=== PATIENT | female | born 1935 | race Two or more races ===

== ENCOUNTER 2023-08-26 18:25 | Inpatient (IN) | payer MEDICAID, OTHER ==
[~2023-08-26] VITALS: Ht 142.2 cm; Wt 44.0 kg
[2023-08-26 19:39] LABS: Basophils # (auto) 0.1 10 ^3/uL (0-0.2); Basophils % (auto) 0.8 % (0.0-2.0); Eosinophils # (auto) 0 10 ^3/uL (0-0.8); Eosinophils % (auto) 0.4 % (0.0-7.0); Hematocrit 40.1 % (36.0-46.0); Hemoglobin 13.2 g/dL (12.2-16.2); Lymphocytes # (auto) 2.6 10 ^3/uL (0.4-5.4); Lymphocytes % (auto) 36.4 % (10.0-50.0); Mean Corpuscular Hemoglobin 30.9 pg (28.0-32.0); Mean Corpuscular Volume 93.6 fL (80.0-100.0); Monocytes # (auto) 0.3 10 ^3/uL (0-1.3); Neutrophils # (auto) 4.1 10 ^3/uL (1.6-8.6); Neutrophils % (auto) 58.4 % (37.0-80.0); Nucleated Red Blood Cells % 0.2 %; Red Blood Cells 4.29 10^6/uL (4.0-5.20)
[2023-08-26 19:45] LABS: INR 1.01 (0.9-1.15); Partial Thromboplastin Time 26.8 SEC (24.5-34.5); Prothrombin Time 10.6 sec (9.3-11.8)
[2023-08-26 19:48] LABS: Alanine Aminotransferase 22 U/L (7-40); Albumin 4.5 g/dL (3.2-4.8); Alkaline Phosphatase 78 U/L (46-116); Anion Gap 17 (5-15); Aspartate Aminotransferase 31 U/L (13-40); BUN/Creatinine Ratio 22.9 (10.0-20.0); Bilirubin, Total 0.6 mg/dL (0.2-1.0); Blood Urea Nitrogen 27 mg/dL (9-23); Calcium 9.3 mg/dL (8.5-10.1); Carbon Dioxide 20 mmol/L (20-30); Chloride 105 mmol/L (98-107); Glucose 102 mg/dL (74-106); Potassium 4.3 mmol/L (3.5-5.1); Sodium 142 mmol/L (136-145); Total Protein 8.1 g/dL (5.7-8.2)
[2023-08-26 20:02] LABS: CRP High Sensitivity 0.09 mg/dL (<1.0)
[2023-08-26 21:36] LABS: Urine Bacteria NONE SEEN /hpf (None Seen); Urine Blood Negative /uL (Negative); Urine Clarity HAZY (Clear); Urine Color Yellow (Yellow); Urine Hyaline Cast MOD /lpf (0 - 2); Urine Mucus FEW (None Seen); Urine Protein, UAD 1+ (Negative); Urine Specific Gravity 1.022 (1.001-1.035); Urine Urobilinogen Normal (Negative); Urine WBC 23 /hpf (0 - 5); Urine pH 5.5 (5.0-8.0)
[2023-08-26 23:45] VITALS: O2SAT 96
[2023-08-27] MEDS ORDERED: SULFAMETHOX W/TRIMETH(800/160MG) DS TAB PO ONE (00:30)
[2023-08-27] MEDS ORDERED: CEFTRIAXONE SODIUM 2 GM in D5W 5% 100 ML IV ONE (00:30)
[2023-08-27] MEDS ORDERED: cefTRIAXone 1GM/50ML D5W 50 ML IV ONE ×2 (01:15)
[2023-08-27] MEDS ORDERED: dilTIAZem 25 MG/5 ML VIAL IV ONE (02:30)
[2023-08-27] MEDS ORDERED: SODIUM CHLORIDE 0.9% 500 ML IV ONE (02:30)
[2023-08-27] MEDS ORDERED: ONDANSETRON HCL 4 MG/2 ML VIAL IV PRN (03:15)
[2023-08-27] MEDS ORDERED: ACETAMINOPHEN 325 MG TAB PO PRN (03:15)
[2023-08-27] MEDS ORDERED: NITROGLYCERIN 0.4 MG SL TAB SL PRN (03:15)
[2023-08-27] MEDS ORDERED: DOCUSATE SOD 100 MG CAP PO PRN (03:15)
[2023-08-27] MEDS ORDERED: MORPHINE SULFATE INJ 2 MG/ml SYRG IV PRN (03:15)
[2023-08-27] MEDS ORDERED: HYDROcodone-ACET 5/325MG TAB PO PRN (03:15)
[2023-08-27] MEDS: SODIUM CHLOR 0.9% PF (SALINE LOCK) 10ML VIAL/SYR IV SCH ×3 (06:10→21:57)
[2023-08-27 07:17] LABS: Basophils # (auto) 0.1 10 ^3/uL (0-0.2); Basophils % (auto) 0.9 % (0.0-2.0); Eosinophils # (auto) 0.1 10 ^3/uL (0-0.8); Eosinophils % (auto) 1.5 % (0.0-7.0); Hematocrit 30.3 % (36.0-46.0); Hemoglobin 10.2 g/dL (12.2-16.2); Lymphocytes # (auto) 1.9 10 ^3/uL (0.4-5.4); Lymphocytes % (auto) 32.8 % (10.0-50.0); Mean Corpuscular Hemoglobin 30.7 pg (28.0-32.0); Mean Corpuscular Hgb Conc. 33.5 g/dL (32.0-36.0); Mean Corpuscular Volume 91.8 fL (80.0-100.0); Monocytes # (auto) 0.5 10 ^3/uL (0-1.3); Neutrophils # (auto) 3.3 10 ^3/uL (1.6-8.6); Neutrophils % (auto) 56.8 % (37.0-80.0); Nucleated Red Blood Cells % 0.1 %; Red Cell Distribution Width 14.5 % (11.8-14.3); White Blood Cell 5.9 10^3/uL (4.4-10.8)
[2023-08-27 07:52] LABS: Alanine Aminotransferase 14 U/L (7-40); Albumin 3.6 g/dL (3.2-4.8); Alkaline Phosphatase 56 U/L (46-116); Anion Gap 12 (5-15); Aspartate Aminotransferase 20 U/L (13-40); BUN/Creatinine Ratio 21.3 (10.0-20.0); Bilirubin, Total 0.3 mg/dL (0.2-1.0); Blood Urea Nitrogen 19 mg/dL (9-23); Calcium 8.1 mg/dL (8.5-10.1); Carbon Dioxide 21 mmol/L (20-30); Chloride 112 mmol/L (98-107); Glucose 76 mg/dL (74-106); Potassium 3.6 mmol/L (3.5-5.1); Sodium 145 mmol/L (136-145); Total Protein 6.5 g/dL (5.7-8.2)
[2023-08-27] MEDS ORDERED: dilTIAZem 120MG ER CAP PO SCH (10:00)
[2023-08-27] MEDS ORDERED: MIDAZOLAM DRIP 50 mg/50mL 0 ML IV ONE (10:08)
[2023-08-27] MEDS: ASPirin 81 mg TAB PO SCH (11:09)
[2023-08-27] MEDS ORDERED: methIMAzole 5 MG TAB PO ONE (11:45)
[2023-08-27 20:00] VITALS: PULSE 62; RESP 22; O2SAT 99
[2023-08-27] MEDS: METOPROLOL TARTRATE 25 MG TAB PO SCH (21:57)
[2023-08-27] MEDS: cefTRIAXone 1GM/50ML D5W 50 ML IV SCH (21:57)
[2023-08-28] VITALS (9 sets, daily range): BP systolic 123–148; BP diastolic 39–47; PULSE 52–78; RESP 15–20; TEMP 97.5–99.1; O2SAT 90–95
[2023-08-28] MEDS ORDERED: METH5TAB98 PO (02:54)
[2023-08-28] MEDS ORDERED: AMLO1TAB23 PO (02:54)
[2023-08-28] MEDS ORDERED: ASPI-325 PO (02:54)
[2023-08-28] MEDS ORDERED: DONE6TAB PO (02:54)
[2023-08-28] MEDS ORDERED: ROSU1TAB14 PO (02:54)
[2023-08-28] MEDS ORDERED: CHOL20002 PO (02:54)
[2023-08-28] MEDS ORDERED: MET25T PO (02:54)
[2023-08-28 04:44] LABS: Basophils # (auto) 0.1 10 ^3/uL (0-0.2); Basophils % (auto) 0.8 % (0.0-2.0); Eosinophils # (auto) 0.1 10 ^3/uL (0-0.8); Eosinophils % (auto) 1.7 % (0.0-7.0); Hematocrit 33.7 % (36.0-46.0); Lymphocytes # (auto) 2.2 10 ^3/uL (0.4-5.4); Lymphocytes % (auto) 29.4 % (10.0-50.0); Mean Corpuscular Hemoglobin 30.9 pg (28.0-32.0); Mean Corpuscular Hgb Conc. 32.7 g/dL (32.0-36.0); Mean Corpuscular Volume 94.5 fL (80.0-100.0); Monocytes # (auto) 0.3 10 ^3/uL (0-1.3); Monocytes % (auto) 4.2 % (0.0-12.0); Neutrophils # (auto) 4.7 10 ^3/uL (1.6-8.6); Neutrophils % (auto) 63.9 % (37.0-80.0); Nucleated Red Blood Cells % 0.1 %; Red Blood Cells 3.56 10^6/uL (4.0-5.20); Red Cell Distribution Width 15.1 % (11.8-14.3); White Blood Cell 7.3 10^3/uL (4.4-10.8)
[2023-08-28 05:01] LABS: Albumin 3.9 g/dL (3.2-4.8); Alkaline Phosphatase 62 U/L (46-116); Anion Gap 13 (5-15); Aspartate Aminotransferase 25 U/L (13-40); BUN/Creatinine Ratio 17.6 (10.0-20.0); Blood Urea Nitrogen 18 mg/dL (9-23); Calcium 8.5 mg/dL (8.7-10.4); Carbon Dioxide 19 mmol/L (20-30); Chloride 113 mmol/L (98-107); Glucose 63 mg/dL (74-106); Potassium 4.2 mmol/L (3.5-5.1); Sodium 145 mmol/L (136-145)
[2023-08-28 05:02] LABS: Bilirubin, Total 0.5 mg/dL (0.2-1.0); Total Protein 7.3 g/dL (5.7-8.2)
[2023-08-28 05:22] LABS: Alanine Aminotransferase 16 U/L (7-40)
[2023-08-28] MEDS: SODIUM CHLOR 0.9% PF (SALINE LOCK) 10ML VIAL/SYR IV SCH ×3 (06:14→21:20)
[2023-08-28] MEDS: methIMAzole 5 MG TAB PO SCH (08:44)
[2023-08-28] MEDS: ASPirin 81 mg TAB PO SCH (08:50)
[2023-08-28] MEDS: METOPROLOL TARTRATE 25 MG TAB PO SCH ×2 (08:50→21:20)
[2023-08-28] MEDS ORDERED: CHOL20007 PO (08:54)
[2023-08-28] MEDS ORDERED: MELA5TAB10 PO (08:55)
[2023-08-28 16:25] LABS: Free T4 (Free Thyroxine) 1.09 ng/dL (0.89-1.76); T3 Total 0.92 ng/mL (0.60-1.81)
[2023-08-28] MEDS: MEGESTROL ACET 400MG/10ML ORAL SUSP GT SCH (21:20)
[2023-08-28] MEDS: cefTRIAXone 1GM/50ML D5W 50 ML IV SCH (21:20)
[2023-08-29] MEDS ORDERED: MELATONIN 5 MG TAB PO ONE ×2 (00:15→22:00)
[2023-08-29] MEDS ORDERED: MELATONIN 5 MG TAB ONE (00:21)
[2023-08-29] MEDS: SODIUM CHLOR 0.9% PF (SALINE LOCK) 10ML VIAL/SYR IV SCH ×2 (04:53→13:11)
[2023-08-29 05:00] VITALS: BP 132/44; PULSE 59; RESP 18; TEMP 98; O2SAT 92
[2023-08-29 08:00] VITALS: PULSE 76; O2SAT 95
[2023-08-29 08:10] VITALS: BP 141/56; PULSE 61; RESP 18; TEMP 98.2; O2SAT 96
[2023-08-29 08:59] LABS: Basophils # (auto) 0 10 ^3/uL (0-0.2); Basophils % (auto) 0.7 % (0.0-2.0); Eosinophils # (auto) 0.1 10 ^3/uL (0-0.8); Eosinophils % (auto) 2.2 % (0.0-7.0); Hematocrit 34.7 % (36.0-46.0); Hemoglobin 11.4 g/dL (12.2-16.2); Lymphocytes # (auto) 1.9 10 ^3/uL (0.4-5.4); Lymphocytes % (auto) 28.4 % (10.0-50.0); Mean Corpuscular Hemoglobin 31.4 pg (28.0-32.0); Mean Corpuscular Volume 95.3 fL (80.0-100.0); Monocytes # (auto) 0.5 10 ^3/uL (0-1.3); Neutrophils # (auto) 4.1 10 ^3/uL (1.6-8.6); Neutrophils % (auto) 61.7 % (37.0-80.0); Nucleated Red Blood Cells % 0.1 %; Red Blood Cells 3.64 10^6/uL (4.0-5.20); Red Cell Distribution Width 15.5 % (11.8-14.3); White Blood Cell 6.6 10^3/uL (4.4-10.8)
[2023-08-29 09:12] LABS: Chloride 110 mmol/L (98-107); Potassium 3.6 mmol/L (3.5-5.1); Sodium 141 mmol/L (136-145)
[2023-08-29 09:13] LABS: Anion Gap 9 (5-15); Calcium 8.7 mg/dL (8.5-10.1); Carbon Dioxide 22 mmol/L (20-30)
[2023-08-29 09:18] LABS: BUN/Creatinine Ratio 9.9 (10.0-20.0); Glucose 142 mg/dL (74-106)
[2023-08-29] MEDS: ASPirin 81 mg TAB PO SCH (09:18)
[2023-08-29] MEDS: methIMAzole 5 MG TAB PO SCH (09:18)
[2023-08-29] MEDS: METOPROLOL TARTRATE 25 MG TAB PO SCH (09:18)
[2023-08-29 09:20] LABS: Blood Urea Nitrogen 8 mg/dL (9-23)
[2023-08-29] MEDS ORDERED: MIRT1TAB PO (10:27)
[2023-08-29] MEDS ORDERED: CEPH500C PO (10:29)
[2023-08-29] MEDS: MEGESTROL ACET 400MG/10ML ORAL SUSP GT SCH (10:29)
[2023-08-29] MEDS ORDERED: FER325T PO (11:11)
[2023-08-29] MEDS ORDERED: ASCO500T11 PO (11:12)
[2023-08-29 11:23] LABS: % Iron Saturation 21.7 % (15-50)
[2023-08-29 12:10] VITALS: BP 137/56; PULSE 59; RESP 17; TEMP 98.4; O2SAT 95
[2023-08-29 16:00] VITALS: BP 147/59; PULSE 62; RESP 18; TEMP 98.3; O2SAT 97
[2023-08-29 16:03] VITALS: BP 113/66; PULSE 82; RESP 20; TEMP 98.1; O2SAT 97
[2023-08-29] MEDS ORDERED: FERROUS SULFATE 325mg EC TAB PO SCH (18:00)
== END 2023-08-29 16:55 | disposition home health service (06) | DRG 421 ==
LOC: ER 18:25 → TELE 08-27 03:02 → TELE-WESTW 08-27 23:57
PROVIDERS: ADMIT Internal Medicine; ATTEND Internal Medicine
DX: R62.7 Adult failure to thrive (principal); N17.0 Acute kidney failure with tubular necrosis; I67.1 Cerebral aneurysm, nonruptured; R65.10 Systemic inflammatory response syndrome (SIRS) of non-infectious origin without acute organ dysfunction; I24.9 Acute ischemic heart disease, unspecified; I11.0 Hypertensive heart disease with heart failure; D63.8 Anemia in other chronic diseases classified elsewhere; I50.32 Chronic diastolic (congestive) heart failure; N39.0 Urinary tract infection, site not specified; I48.91 Unspecified atrial fibrillation; E11.9 Type 2 diabetes mellitus without complications; E05.90 Thyrotoxicosis, unspecified without thyrotoxic crisis or storm; E78.5 Hyperlipidemia, unspecified; F03.93 Unspecified dementia, unspecified severity, with mood disturbance; F32.A Depression, unspecified; Z63.4 Disappearance and death of family member; Z79.84 Long term (current) use of oral hypoglycemic drugs; Z86.73 Personal history of transient ischemic attack (TIA), and cerebral infarction without residual deficits
CPT/HCPCS: 36415; 70450; 71250; 74176; 80048; 80053; 81001; 82270; 83540; 83550; 83605; 83690; 83880; 84439; 84443; 84480; 84484; 85025; 85610; 85730; 86141; 87086; 93005; 93306; 96361; 96365; 97163; G0378; J0696; J2250; J7060

== ENCOUNTER 2024-06-27 13:35 | Inpatient (IN) | payer MEDICAID ==
[~2024-06-27] VITALS: Ht 142.2 cm; Wt 40.2 kg
[~2024-06-27 13:35] MED LIST: ACE3T PO; AMLO1TAB23 PO; CHOL20002 PO; DIVA250T12 PO; DONE6TAB PO; FER325T PO; MELA5TAB10 PO; MET25T PO; METH5TAB98 PO; MIRT1TAB PO; NALO4SPR3; QUET100T47 PO; QUET25TA37 PO; ROSU20TA56 PO; SENN-58 PO
[2024-06-27 14:40] VITALS: PULSE 77; RESP 15; O2SAT 99
[2024-06-27 15:51] LABS: Alanine Aminotransferase 22 U/L (7-40); Albumin 4.3 g/dL (3.2-4.8); Alkaline Phosphatase 81 U/L (46-116); Anion Gap 17 (5-15); Aspartate Aminotransferase 41 U/L (13-40); BUN/Creatinine Ratio 18.6 (10.0-20.0); Bilirubin, Total 0.3 mg/dL (0.2-1.0); Blood Urea Nitrogen 64 mg/dL (9-23); Calcium 9.3 mg/dL (8.7-10.4); Carbon Dioxide 22 mmol/L (20-31); Chloride 129 mmol/L (98-107); Glucose 123 mg/dL (74-106); Potassium 5.1 mmol/L (3.5-5.1); Total Protein 9.1 g/dL (5.7-8.2)
[2024-06-27 15:58] LABS: Lactic Acid w/Reflex 2.8 mmol/L (0.4-2.0)
[2024-06-27 15:58] LABS: Sodium 168 mmol/L (136-145)
[2024-06-27] MEDS: SODIUM CHLORIDE 0.9% 1,000 ML IV ONE (16:10)
[2024-06-27 16:19] LABS: Urine WBC None Seen /hpf (0 - 5)
[2024-06-27 16:20] LABS: Hematocrit 50.3 % (36.0-46.0); Hemoglobin 15.3 g/dL (12.2-16.2); Mean Corpuscular Hemoglobin 31.6 pg (28.0-32.0); Mean Corpuscular Hgb Conc. 30.5 g/dL (32.0-36.0); Mean Corpuscular Volume 103.5 fL (80.0-100.0); Platelet Count (auto) 129 10^3/uL (140-450); Red Blood Cells 4.86 10^6/uL (4.0-5.20); Red Cell Distribution Width 15.6 % (11.8-14.3); White Blood Cell 12.5 10^3/uL (4.4-10.8)
[2024-06-27 16:26] LABS: Band Neutrophils % (manual) 0; Basophils % (manual) 0 (0.0-2.0); Blast Cells 0; Eosinophils % (manual) 0 (0-7); Metamyelocytes % 0; Myelocytes % 0; Promyelocytes % 0; Reactive Lymphocytes 0
[2024-06-27] MEDS: D5W/SOD CHL 0.45% 1,000 ML IV ONE (16:31)
[2024-06-27 16:55] LABS: Anisocytosis Slight; Lymphocytes % (manual) 21 (10.0-50.0); Monocytes % (manual) 5 (0-12); Platelet Estimate Decreased
[2024-06-27 17:05] LABS: Urine Bacteria FEW /hpf (None Seen); Urine Blood 2+ /uL (Negative); Urine Clarity Ex.Turbid (Clear); Urine Color Light-Orange (Yellow); Urine Hyaline Cast FEW /lpf (0 - 2); Urine Mucus FEW (None Seen); Urine Protein, UAD 3+ (Negative); Urine Specific Gravity 1.026 (1.001-1.035); Urine Urobilinogen Normal (Negative); Urine pH 5.5 (5.0-9.0)
[2024-06-27 17:13] LABS: Lipase 96 U/L (12-53)
[2024-06-27] MEDS ORDERED: ASPI81CH59 PO (17:44)
[2024-06-27 20:00] VITALS: PULSE 87; RESP 22; O2SAT 97
[2024-06-27] MEDS: SOD CHL 0.45% 1,000 ML IV ONE ×2 (21:19→21:20)
[2024-06-27] MEDS ORDERED: ACETAMINOPHEN 325 MG TAB PO PRN (22:00)
[2024-06-27] MEDS: ONDANSETRON HCL 4 MG/2 ML VIAL IV PRN (22:32)
[2024-06-27] MEDS: DONEPEZIL HYDROCHLORIDE 5 MG TAB PO SCH (22:32)
[2024-06-27] MEDS: D5W 5% 1,000 ML IV SCH (22:47)
[2024-06-27] MEDS: LORazepam 2MG/ML-1ML VIAL IV ONE (22:52)
[2024-06-27] MEDS: HALOPERIDOL LACTATE 5 MG/ML INJ VIAL IM ONE (23:32)
[2024-06-28 05:00] LABS: Calcium 7.2 mg/dL (8.7-10.4); Carbon Dioxide 18 mmol/L (20-31)
[2024-06-28 05:05] LABS: BUN/Creatinine Ratio 18.9 (10.0-20.0); Glucose 123 mg/dL (74-106)
[2024-06-28 05:09] LABS: Anion Gap 15 (5-15); Chloride 123 mmol/L (98-107); Potassium 3.8 mmol/L (3.5-5.1); Sodium 156 mmol/L (136-145)
[2024-06-28 05:10] LABS: Blood Urea Nitrogen 54 mg/dL (9-23)
[2024-06-28 06:38] LABS: Eosinophils # (auto) 0 10 ^3/uL (0-0.8); Hematocrit 34.7 % (36.0-46.0); Hemoglobin 10.8 g/dL (12.2-16.2); Lymphocytes # (auto) 2.3 10 ^3/uL (0.4-5.4); Mean Corpuscular Hemoglobin 32.1 pg (28.0-32.0); Mean Corpuscular Hgb Conc. 31.1 g/dL (32.0-36.0); Monocytes # (auto) 0.6 10 ^3/uL (0-1.3); Red Blood Cells 3.36 10^6/uL (4.0-5.20); White Blood Cell 11.3 10^3/uL (4.4-10.8)
[2024-06-28 06:42] LABS: Basophils # (auto) 0 10 ^3/uL (0-0.2); Basophils % (auto) 0.2 % (0.0-2.0); Eosinophils % (auto) 0.4 % (0.0-7.0); Lymphocytes % (auto) 20.3 % (10.0-50.0); Mean Corpuscular Volume 103.4 fL (80.0-100.0); Monocytes % (auto) 5.4 % (0.0-12.0); Neutrophils # (auto) 8.3 10 ^3/uL (1.6-8.6); Neutrophils % (auto) 73.7 % (37.0-80.0); Nucleated Red Blood Cells % 0.6 %; Platelet Count (auto) 156 10^3/uL (140-450); Red Cell Distribution Width 15.4 % (11.8-14.3)
[2024-06-28 07:50] VITALS: PULSE 65; RESP 19; O2SAT 95
[2024-06-28] MEDS: ALBUMIN 25% 100 ML IV SCH (08:16)
[2024-06-28 09:56] LABS: Magnesium,Therapeutic 3.14 mg/dL (4.0-7.1)
[2024-06-28] MEDS: methIMAzole 5 MG TAB PO SCH (10:33)
[2024-06-28] MEDS: LINEZOLID 600MG/300ML 300 ML IV SCH (11:26)
[2024-06-28] MEDS: SODIUM CHLORIDE 0.9% 500 ML IV ONE ×2 (11:26→15:09)
[2024-06-28 12:43] LABS: Creatinine, Urine 129.93 mg/dL (30.0-125.0)
[2024-06-28 12:44] LABS: Creatinine, Urine 129.23 mg/dL (30.0-125.0)
[2024-06-28 12:45] LABS: Protein, Urine 262.5 mg/dL (1-14)
[2024-06-28 12:47] LABS: Protein, Urine 268.5 mg/dL (1-14); Urine Protein/Creatinine Ratio 2.08
[2024-06-28] MEDS: SOD CHL 0.45% 1,000 ML IV SCH (13:07)
[2024-06-28 13:17] LABS: Chloride 121 mmol/L (98-107); Potassium 3.2 mmol/L (3.5-5.1); Sodium 152 mmol/L (136-145)
[2024-06-28 13:18] LABS: Anion Gap 13 (5-15); Calcium 7.2 mg/dL (8.7-10.4); Carbon Dioxide 18 mmol/L (20-31)
[2024-06-28 13:23] LABS: BUN/Creatinine Ratio 17.9 (10.0-20.0); Blood Urea Nitrogen 46 mg/dL (9-23); Glucose 122 mg/dL (74-106)
[2024-06-28] MEDS: MEROPENEM 500MG IVPB 50 ML IV SCH (13:27)
[2024-06-28] MEDS: POTASSIUM CHL 20MEQ/100ML 100 ML IV SCH (15:08)
[2024-06-28] MEDS ORDERED: HYDR-4902 PO (17:44)
[2024-06-28 18:27] LABS: Chloride 121 mmol/L (98-107); Potassium 3.8 mmol/L (3.5-5.1); Sodium 152 mmol/L (136-145)
[2024-06-28 18:28] LABS: Anion Gap 12 (5-15); Carbon Dioxide 19 mmol/L (20-31)
[2024-06-28 18:29] LABS: Calcium 6.7 mg/dL (8.7-10.4)
[2024-06-28 18:34] LABS: BUN/Creatinine Ratio 24.8 (10.0-20.0); Glucose 97 mg/dL (74-106)
[2024-06-28 18:42] LABS: Blood Urea Nitrogen 59 mg/dL (9-23)
[2024-06-28 18:59] LABS: Lactic Acid w/Reflex 2.2 mmol/L (0.4-2.0)
[2024-06-28 19:45] VITALS: PULSE 62; RESP 20; O2SAT 95
[2024-06-28] MEDS: CALCIUM GLUC 1,000mg/50ml-NS 50 ML IV ONE (19:52)
[2024-06-29 07:30] VITALS: PULSE 74; RESP 18; O2SAT 96
[2024-06-29 09:29] LABS: Basophils # (auto) 0 10 ^3/uL (0-0.2); Basophils % (auto) 0.2 % (0.0-2.0); Eosinophils # (auto) 0.1 10 ^3/uL (0-0.8); Eosinophils % (auto) 0.8 % (0.0-7.0); Hematocrit 31.3 % (36.0-46.0); Hemoglobin 9.8 g/dL (12.2-16.2); Lymphocytes # (auto) 1.6 10 ^3/uL (0.4-5.4); Lymphocytes % (auto) 16.6 % (10.0-50.0); Mean Corpuscular Hemoglobin 32.2 pg (28.0-32.0); Mean Corpuscular Hgb Conc. 31.4 g/dL (32.0-36.0); Mean Corpuscular Volume 102.4 fL (80.0-100.0); Monocytes # (auto) 0.5 10 ^3/uL (0-1.3); Monocytes % (auto) 5.3 % (0.0-12.0); Neutrophils # (auto) 7.2 10 ^3/uL (1.6-8.6); Neutrophils % (auto) 77.1 % (37.0-80.0); Nucleated Red Blood Cells % 0.7 %; Platelet Count (auto) 108 10^3/uL (140-450); Red Blood Cells 3.06 10^6/uL (4.0-5.20); Red Cell Distribution Width 15.1 % (11.8-14.3); White Blood Cell 9.4 10^3/uL (4.4-10.8)
[2024-06-29 09:40] LABS: Alanine Aminotransferase 24 U/L (7-40); Albumin 3.4 g/dL (3.2-4.8); Alkaline Phosphatase 61 U/L (46-116); Anion Gap 10 (5-15); Aspartate Aminotransferase 59 U/L (13-40); BUN/Creatinine Ratio 12.9 (10.0-20.0); Bilirubin, Total 0.5 mg/dL (0.2-1.0); Calcium 7.2 mg/dL (8.7-10.4); Carbon Dioxide 18 mmol/L (20-31); Chloride 121 mmol/L (98-107); Glucose 126 mg/dL (74-106); Magnesium 2.6 mg/dL (1.6-2.6); Phosphorus 2.3 mg/dL (2.4-5.1); Potassium 3.6 mmol/L (3.5-5.1); Sodium 149 mmol/L (136-145)
[2024-06-29 09:41] LABS: Blood Urea Nitrogen 28 mg/dL (9-23)
[2024-06-29] MEDS: ENOXAPARIN SOD 30 MG/0.3 ML SYRINGE SC SCH (11:47)
[2024-06-29] MEDS: ASPirin-EC 81 mg tab PO SCH (11:48)
[2024-06-29] MEDS: methIMAzole 5 MG TAB PO SCH (11:48)
[2024-06-29] MEDS: POTASSIUM PHOSPHATE 22 MEQ in SODIUM CHL 0.9% 100 ML IV ONE (12:36)
[2024-06-29] MEDS: CALCIUM GLUC 1,000mg/50ml-NS 50 ML IV ONE (12:42)
[2024-06-29] MEDS: ACETAMINOPHEN 325 MG TAB PO SCH (14:00)
[2024-06-29 15:00] VITALS: BP 116/54; PULSE 74; RESP 18; TEMP 97.9; O2SAT 92
[2024-06-29 17:00] VITALS: BP 113/40; PULSE 72; RESP 17; TEMP 97.8; O2SAT 91
[2024-06-29 17:22] LABS: Chloride 122 mmol/L (98-107); Potassium 3.4 mmol/L (3.5-5.1); Sodium 151 mmol/L (136-145)
[2024-06-29 17:23] LABS: Anion Gap 9 (5-15); Calcium 7.1 mg/dL (8.7-10.4); Carbon Dioxide 20 mmol/L (20-31)
[2024-06-29 17:28] LABS: BUN/Creatinine Ratio 18.8 (10.0-20.0); Blood Urea Nitrogen 36 mg/dL (9-23); Glucose 114 mg/dL (74-106)
[2024-06-29 17:30] VITALS: PULSE 74; RESP 18; O2SAT 92
[2024-06-29 20:00] VITALS: PULSE 64; RESP 18; O2SAT 94
[2024-06-29 21:00] VITALS: BP 137/45; PULSE 69; RESP 17; TEMP 99.5; O2SAT 95
[2024-06-29] MEDS: ATORVASTATIN 20 MG TAB PO SCH (22:41)
[2024-06-29] MEDS: QUEtiapine FUMARATE 25 MG TAB PO SCH (22:43)
[2024-06-30] VITALS (7 sets, daily range): BP systolic 120–146; BP diastolic 51–67; PULSE 77–87; RESP 18–20; TEMP 98.4–98.7; O2SAT 94–97
[2024-06-30 09:53] LABS: Chloride 123 mmol/L (98-107); Potassium 3.1 mmol/L (3.5-5.1); Sodium 153 mmol/L (136-145)
[2024-06-30 09:56] LABS: Anion Gap 10 (5-15); Carbon Dioxide 20 mmol/L (20-31)
[2024-06-30 09:57] LABS: Calcium 7.8 mg/dL (8.7-10.4)
[2024-06-30 10:02] LABS: Alkaline Phosphatase 73 U/L (46-116); BUN/Creatinine Ratio 11.1 (10.0-20.0); Glucose 99 mg/dL (74-106)
[2024-06-30 10:03] LABS: Alanine Aminotransferase 25 U/L (7-40); Albumin 3.5 g/dL (3.2-4.8); Aspartate Aminotransferase 50 U/L (13-40)
[2024-06-30 10:04] LABS: Bilirubin, Total 0.6 mg/dL (0.2-1.0); Total Protein 6.5 g/dL (5.7-8.2)
[2024-06-30 10:07] LABS: Blood Urea Nitrogen 19 mg/dL (9-23)
[2024-06-30] MEDS: POTASSIUM CHL 20MEQ/100ML 100 ML IV SCH (16:11)
[2024-06-30] MEDS: SOD CHL 0.45% 1,000 ML IV SCH (16:12)
[2024-07-01] VITALS (7 sets, daily range): BP systolic 118–151; BP diastolic 51–68; PULSE 59–79; RESP 18–20; TEMP 97.9–98.5; O2SAT 96–100
[2024-07-01 07:17] LABS: Chloride 119 mmol/L (98-107); Potassium 3.4 mmol/L (3.5-5.1)
[2024-07-01 07:18] LABS: Calcium 7.8 mg/dL (8.7-10.4); Carbon Dioxide 19 mmol/L (20-31)
[2024-07-01 07:20] LABS: Anion Gap 9 (5-15); Sodium 147 mmol/L (136-145)
[2024-07-01 07:23] LABS: Blood Urea Nitrogen 16 mg/dL (9-23); Glucose 125 mg/dL (74-106)
[2024-07-01] MEDS ORDERED: POTASSIUM EFFERVESENT TAB 25 MEQ PO ONE (11:30)
[2024-07-01 14:03] LABS: Chloride 121 mmol/L (98-107); Potassium 3.5 mmol/L (3.5-5.1); Sodium 147 mmol/L (136-145)
[2024-07-01 14:04] LABS: Anion Gap 8 (5-15); Calcium 7.6 mg/dL (8.7-10.4); Carbon Dioxide 18 mmol/L (20-31)
[2024-07-01 14:09] LABS: BUN/Creatinine Ratio 8.8 (10.0-20.0); Blood Urea Nitrogen 12 mg/dL (9-23); Glucose 104 mg/dL (74-106)
[2024-07-01] MEDS: amLODIPine BESYLATE 5 MG TAB PO ONE (21:15)
[2024-07-02] VITALS (9 sets, daily range): BP systolic 82–149; BP diastolic 42–64; PULSE 68–89; RESP 16–22; TEMP 98.2–99.5; O2SAT 99–100
[2024-07-02 07:08] LABS: Anion Gap 12 (5-15); Carbon Dioxide 17 mmol/L (20-31); Chloride 117 mmol/L (98-107); Potassium 3.4 mmol/L (3.5-5.1); Sodium 146 mmol/L (136-145)
[2024-07-02 07:09] LABS: Calcium 7.9 mg/dL (8.7-10.4)
[2024-07-02 07:10] LABS: Basophils # (auto) 0 10 ^3/uL (0-0.2); Basophils % (auto) 0.3 % (0.0-2.0); Eosinophils # (auto) 0.3 10 ^3/uL (0-0.8); Eosinophils % (auto) 4.2 % (0.0-7.0); Hematocrit 31.9 % (36.0-46.0); Hemoglobin 10.6 g/dL (12.2-16.2); Lymphocytes # (auto) 1.5 10 ^3/uL (0.4-5.4); Lymphocytes % (auto) 22.1 % (10.0-50.0); Mean Corpuscular Hemoglobin 32.7 pg (28.0-32.0); Mean Corpuscular Hgb Conc. 33.2 g/dL (32.0-36.0); Mean Corpuscular Volume 98.3 fL (80.0-100.0); Monocytes # (auto) 0.5 10 ^3/uL (0-1.3); Monocytes % (auto) 7.7 % (0.0-12.0); Neutrophils # (auto) 4.3 10 ^3/uL (1.6-8.6); Neutrophils % (auto) 65.7 % (37.0-80.0); Nucleated Red Blood Cells % 0.2 %; Platelet Count (auto) 77 10^3/uL (140-450); Red Blood Cells 3.25 10^6/uL (4.0-5.20); Red Cell Distribution Width 14.2 % (11.8-14.3); White Blood Cell 6.6 10^3/uL (4.4-10.8)
[2024-07-02 07:14] LABS: BUN/Creatinine Ratio 9.7 (10.0-20.0); Blood Urea Nitrogen 12 mg/dL (9-23); Glucose 84 mg/dL (74-106)
[2024-07-02 07:15] LABS: Magnesium 2.1 mg/dL (1.6-2.6)
[2024-07-02 07:16] LABS: Phosphorus 2.4 mg/dL (2.4-5.1)
[2024-07-02] MEDS: amLODIPine BESYLATE 5 MG TAB PO SCH (10:00)
[2024-07-02] MEDS ORDERED: SOD CHL 0.45% 1,000 ML IV SCH (11:30)
[2024-07-02 13:05] LABS: Anion Gap 10 (5-15); Carbon Dioxide 18 mmol/L (20-31); Chloride 118 mmol/L (98-107); Potassium 3.5 mmol/L (3.5-5.1); Sodium 146 mmol/L (136-145)
[2024-07-02 13:06] LABS: Calcium 7.7 mg/dL (8.7-10.4)
[2024-07-02] MEDS: SODIUM CHLORIDE 0.9% 500 ML IV ONE (13:09)
[2024-07-02 13:11] LABS: BUN/Creatinine Ratio 11.5 (10.0-20.0); Blood Urea Nitrogen 14 mg/dL (9-23); Glucose 72 mg/dL (74-106)
[2024-07-02] MEDS: POTASSIUM PHOSPHATE 22 MEQ in SODIUM CHL 0.9% 100 ML IV ONE (14:07)
[2024-07-02] MEDS ORDERED: LINEZOLID 600MG/300ML 300 ML IV ONE (14:15)
[2024-07-02] MEDS: SODIUM CHLORIDE 0.9% 1,000 ML IV SCH (14:36)
[2024-07-02] MEDS: LINEZOLID 600MG/300ML 300 ML IV ONE (21:38)
[2024-07-02] MEDS: MEROPENEM 1GM IVPB 50 ML IV SCH (22:16)
[2024-07-03] VITALS (9 sets, daily range): BP systolic 131–146; BP diastolic 52–74; PULSE 72–82; RESP 18–22; TEMP 98.3–99.1; O2SAT 99–100
[2024-07-03] MEDS ORDERED: LINEZOLID 600MG/300ML 300 ML IV SCH (02:00)
[2024-07-03 06:59] LABS: Chloride 118 mmol/L (98-107); Potassium 3.3 mmol/L (3.5-5.1); Sodium 146 mmol/L (136-145)
[2024-07-03 07:00] LABS: Anion Gap 12 (5-15); Calcium 7.4 mg/dL (8.7-10.4); Carbon Dioxide 16 mmol/L (20-31)
[2024-07-03 07:05] LABS: BUN/Creatinine Ratio 14.2 (10.0-20.0); Blood Urea Nitrogen 15 mg/dL (9-23); Glucose 75 mg/dL (74-106)
[2024-07-03 07:10] LABS: Basophils # (auto) 0 10 ^3/uL (0-0.2); Basophils % (auto) 0.5 % (0.0-2.0); Eosinophils # (auto) 0.1 10 ^3/uL (0-0.8); Eosinophils % (auto) 2.8 % (0.0-7.0); Hematocrit 27.9 % (36.0-46.0); Hemoglobin 9.3 g/dL (12.2-16.2); Lymphocytes # (auto) 1.3 10 ^3/uL (0.4-5.4); Lymphocytes % (auto) 24.7 % (10.0-50.0); Mean Corpuscular Hemoglobin 32.4 pg (28.0-32.0); Mean Corpuscular Hgb Conc. 33.3 g/dL (32.0-36.0); Mean Corpuscular Volume 97.3 fL (80.0-100.0); Monocytes # (auto) 0.5 10 ^3/uL (0-1.3); Monocytes % (auto) 8.7 % (0.0-12.0); Neutrophils # (auto) 3.3 10 ^3/uL (1.6-8.6); Neutrophils % (auto) 63.3 % (37.0-80.0); Nucleated Red Blood Cells % 0.1 %; Platelet Count (auto) 81 10^3/uL (140-450); Red Blood Cells 2.87 10^6/uL (4.0-5.20); White Blood Cell 5.3 10^3/uL (4.4-10.8)
[2024-07-03] MEDS: LINEZOLID 600MG/300ML 300 ML IV SCH (07:37)
[2024-07-04] VITALS (8 sets, daily range): BP systolic 124–148; BP diastolic 53–74; PULSE 76–87; RESP 17–20; TEMP 97.6–99.2; O2SAT 88–100
[2024-07-04 07:25] LABS: Chloride 113 mmol/L (98-107); Potassium 3.2 mmol/L (3.5-5.1); Sodium 139 mmol/L (136-145)
[2024-07-04 07:26] LABS: Anion Gap 8 (5-15); Calcium 7.3 mg/dL (8.7-10.4); Carbon Dioxide 18 mmol/L (20-31)
[2024-07-04 07:31] LABS: BUN/Creatinine Ratio 11.6 (10.0-20.0); Blood Urea Nitrogen 11 mg/dL (9-23); Glucose 117 mg/dL (74-106)
[2024-07-04 09:06] LABS: Albumin Urine 42.4 % (.); Alpha-1-Globulin Urine 1.7 % (.); Alpha-2-Globulin Urine 18.5 % (.); Beta Globulin Urine 16.8 % (.); Gamma Globulin Urine 20.5 % (.); Protein Total Urine 207.7 mg/dL (Not Estab.)
[2024-07-05] VITALS (7 sets, daily range): BP systolic 136–149; BP diastolic 53–77; PULSE 73–87; RESP 16–18; TEMP 98–99.1; O2SAT 95–98
[2024-07-05 10:07] LABS: Vitamin D 25-Hydroxy 39 ng/mL (.); Vitamin D-2 25-Hydroxy <1.0 ng/mL (.); Vitamin D-3 25-Hydroxy 38 ng/mL (.)
[2024-07-05] MEDS ORDERED: POTASSIUM CHL 20 Meq TABLET PO ONE (20:30)
[2024-07-05] MEDS ORDERED: POTASSIUM EFFERVESENT TAB 25 MEQ PO ONE (20:30)
[2024-07-05] MEDS: POTASSIUM EFFERVESENT TAB 25 MEQ PO ONE (21:29)
[2024-07-06 06:52] VITALS: BP 147/62; PULSE 72; RESP 20; O2SAT 100
[2024-07-06 08:10] VITALS: RESP 18
[2024-07-06] MEDS: POTASSIUM EFFERVESENT TAB 25 MEQ PO ONE (09:15)
[2024-07-06 13:00] VITALS: BP 90/45; PULSE 79; RESP 22; O2SAT 100
[2024-07-06 13:41] LABS: Chloride 115 mmol/L (98-107); Potassium 3.1 mmol/L (3.5-5.1); Sodium 145 mmol/L (136-145)
[2024-07-06 13:42] LABS: Calcium 7.1 mg/dL (8.7-10.4)
[2024-07-06 13:47] LABS: BUN/Creatinine Ratio 16.9 (10.0-20.0); Blood Urea Nitrogen 14 mg/dL (9-23); Glucose 63 mg/dL (74-106)
[2024-07-06 14:05] LABS: Anion Gap 12 (5-15); Carbon Dioxide 18 mmol/L (20-31)
[2024-07-06] MEDS ORDERED: VANCOMYCIN PER PHARMACY 0 MG IV SCH (15:30)
[2024-07-06] MEDS: POTASSIUM CHL 20MEQ/100ML 100 ML IV ONE (15:45)
[2024-07-06] MEDS: VANCOMYCIN 750mg/150ml 150 ML IV ONE (16:34)
[2024-07-06 17:00] VITALS: BP 147/66; PULSE 73; RESP 20; O2SAT 100
[2024-07-06] MEDS: POTASSIUM CHL 20MEQ/100ML 100 ML IV SCH (17:45)
[2024-07-06] MEDS ORDERED: Ensure HIGH Protein Chocolate 8oz Bottle PO SCH (18:00)
[2024-07-06] MEDS: ENSURE CLEAR Mixed Berry 8oz Carton PO SCH (18:03)
[2024-07-06 19:30] VITALS: PULSE 75; RESP 17
[2024-07-06 20:49] VITALS: BP 148/67; PULSE 74; RESP 20; TEMP 99.1; O2SAT 100
[2024-07-07] VITALS (9 sets, daily range): BP systolic 137–168; BP diastolic 45–61; PULSE 61–89; RESP 16–20; TEMP 96.9–99.3; O2SAT 98–100
[2024-07-07] MEDS: D5W/SOD CHL 0.45%/KCL 20MEQ 1,000 ML IV SCH (05:23)
[2024-07-07] MEDS: ACETAMINOPHEN 325 MG TAB PO PRN (07:59)
[2024-07-07 13:09] LABS: Basophils # (auto) 0 10 ^3/uL (0-0.2); Basophils % (auto) 0.6 % (0.0-2.0); Eosinophils # (auto) 0.1 10 ^3/uL (0-0.8); Eosinophils % (auto) 2.2 % (0.0-7.0); Hematocrit 29.4 % (36.0-46.0); Hemoglobin 9.7 g/dL (12.2-16.2); Lymphocytes # (auto) 1.8 10 ^3/uL (0.4-5.4); Lymphocytes % (auto) 32.9 % (10.0-50.0); Mean Corpuscular Hemoglobin 32.5 pg (28.0-32.0); Mean Corpuscular Volume 98.4 fL (80.0-100.0); Monocytes # (auto) 0.5 10 ^3/uL (0-1.3); Monocytes % (auto) 8.3 % (0.0-12.0); Nucleated Red Blood Cells % 0.2 %; Platelet Count (auto) 149 10^3/uL (140-450); Red Blood Cells 2.99 10^6/uL (4.0-5.20); Red Cell Distribution Width 14.7 % (11.8-14.3); White Blood Cell 5.4 10^3/uL (4.4-10.8)
[2024-07-07 13:18] LABS: Chloride 116 mmol/L (98-107); Potassium 3.5 mmol/L (3.5-5.1); Sodium 143 mmol/L (136-145)
[2024-07-07 13:19] LABS: Anion Gap 10 (5-15); Calcium 7.4 mg/dL (8.7-10.4); Carbon Dioxide 17 mmol/L (20-31)
[2024-07-07 13:24] LABS: BUN/Creatinine Ratio 14.7 (10.0-20.0); Blood Urea Nitrogen 11 mg/dL (9-23); Glucose 84 mg/dL (74-106); Magnesium 1.8 mg/dL (1.6-2.6)
[2024-07-07 13:26] LABS: Phosphorus 2.3 mg/dL (2.4-5.1)
[2024-07-07] MEDS ORDERED: CLINIMIX PER PHARMACY 0 ML IV SCH (16:00)
[2024-07-07] MEDS: VANCOMYCIN 500 MG in D5W 5% 100 ML IV SCH (16:45)
[2024-07-07] MEDS: Ensure Enlive Vanilla 8oz Bottle PO SCH (17:21)
[2024-07-07] MEDS: hydrALAZINE HCL 20 MG/ML VL IV PRN (17:39)
[2024-07-08] VITALS (7 sets, daily range): BP systolic 141–157; BP diastolic 58–67; PULSE 68–84; RESP 18–24; TEMP 97.5–98.7; O2SAT 96–100
[2024-07-08] MEDS: VANCOMYCIN 500 MG in D5W 5% 100 ML IV SCH (06:09)
[2024-07-08 06:55] LABS: Basophils # (auto) 0.1 10 ^3/uL (0-0.2); Basophils % (auto) 0.9 % (0.0-2.0); Eosinophils # (auto) 0.2 10 ^3/uL (0-0.8); Eosinophils % (auto) 3.1 % (0.0-7.0); Hematocrit 27.2 % (36.0-46.0); Hemoglobin 9.5 g/dL (12.2-16.2); Lymphocytes # (auto) 1.9 10 ^3/uL (0.4-5.4); Lymphocytes % (auto) 34.2 % (10.0-50.0); Mean Corpuscular Hemoglobin 32.8 pg (28.0-32.0); Mean Corpuscular Hgb Conc. 34.8 g/dL (32.0-36.0); Mean Corpuscular Volume 94.2 fL (80.0-100.0); Monocytes # (auto) 0.5 10 ^3/uL (0-1.3); Monocytes % (auto) 8.4 % (0.0-12.0); Neutrophils # (auto) 2.9 10 ^3/uL (1.6-8.6); Neutrophils % (auto) 53.4 % (37.0-80.0); Nucleated Red Blood Cells % 0.1 %; Platelet Count (auto) 129 10^3/uL (140-450); Red Blood Cells 2.89 10^6/uL (4.0-5.20); Red Cell Distribution Width 14.2 % (11.8-14.3); White Blood Cell 5.5 10^3/uL (4.4-10.8)
[2024-07-08 07:20] LABS: Alanine Aminotransferase 19 U/L (7-40); Albumin 3.1 g/dL (3.2-4.8); Alkaline Phosphatase 72 U/L (46-116); Anion Gap 11 (5-15); Aspartate Aminotransferase 28 U/L (13-40); BUN/Creatinine Ratio 12.7 (10.0-20.0); Blood Urea Nitrogen 9 mg/dL (9-23); Calcium 7.7 mg/dL (8.7-10.4); Carbon Dioxide 19 mmol/L (20-31); Chloride 113 mmol/L (98-107); Glucose 99 mg/dL (74-106); Potassium 3.1 mmol/L (3.5-5.1); Sodium 143 mmol/L (136-145)
[2024-07-08 07:21] LABS: Bilirubin, Total 0.8 mg/dL (0.2-1.0); Phosphorus 1.9 mg/dL (2.4-5.1); Total Protein 5.8 g/dL (5.7-8.2)
[2024-07-08 07:24] LABS: Magnesium 1.8 mg/dL (1.6-2.6)
[2024-07-08 07:41] LABS: Triglycerides 79 mg/dL (< 150)
[2024-07-08] MEDS: POTASSIUM PHOSPHATE 26.4 MEQ in SODIUM CHL 0.9% 100 ML IV ONE (13:00)
[2024-07-08] MEDS ORDERED: PPN PER PHARMACY 0 ML IV SCH (16:15)
[2024-07-09 01:00] VITALS: BP 149/50; PULSE 70; RESP 18; TEMP 98; O2SAT 99
[2024-07-09] MEDS: PPN PER PHARMACY IV NR (01:15)
[2024-07-09 05:00] VITALS: BP 150/61; PULSE 67; RESP 18; TEMP 98; O2SAT 100
[2024-07-09 07:53] LABS: Alanine Aminotransferase 20 U/L (7-40); Alkaline Phosphatase 69 U/L (46-116); Anion Gap 6 (5-15); Aspartate Aminotransferase 28 U/L (13-40); BUN/Creatinine Ratio 15.2 (10.0-20.0); Blood Urea Nitrogen 10 mg/dL (9-23); Calcium 7.7 mg/dL (8.7-10.4); Carbon Dioxide 22 mmol/L (20-31); Chloride 111 mmol/L (98-107); Glucose 122 mg/dL (74-106); Magnesium 1.9 mg/dL (1.6-2.6); Phosphorus 2.5 mg/dL (2.4-5.1); Potassium 2.9 mmol/L (3.5-5.1); Sodium 139 mmol/L (136-145)
[2024-07-09 07:54] LABS: Bilirubin, Total 0.8 mg/dL (0.2-1.0); Total Protein 5.7 g/dL (5.7-8.2)
[2024-07-09] MEDS ORDERED: DEXTROSE (50%) 50ML SYRG IV SCH (10:45)
[2024-07-09] MEDS: POTASSIUM CHL 20MEQ/100ML 100 ML IV SCH (10:45)
[2024-07-09] MEDS: InsuLIN REG 1unit/0.01ml Soln (100units/ml) SC SCH (12:00)
[2024-07-09 13:00] VITALS: BP 139/89; PULSE 70; RESP 16; TEMP 97.8; O2SAT 99
[2024-07-09] MEDS: ACCU-CHEK COMFORT CURVE STRIP VI SCH (13:15)
[2024-07-09 17:00] VITALS: BP 148/61; PULSE 81; RESP 16; TEMP 98.4; O2SAT 99
[2024-07-09] MEDS: POTASSIUM PHOSPHATE 22 MEQ in SODIUM CHL 0.9% 100 ML IV ONE (18:03)
[2024-07-09 21:00] VITALS: BP 140/67; PULSE 60; RESP 16; TEMP 98; O2SAT 96
[2024-07-09] MEDS ORDERED: TPN PER PHARMACY IV NR ×2 (22:00)
[2024-07-09] MEDS: VANCOMYCIN 500 MG in D5W 5% 100 ML IV SCH (23:09)
[2024-07-10] VITALS (7 sets, daily range): BP systolic 134–158; BP diastolic 45–67; PULSE 60–68; RESP 16–18; TEMP 36.6; O2SAT 95–100
[2024-07-10 07:16] LABS: Basophils # (auto) 0 10 ^3/uL (0-0.2); Basophils % (auto) 0.8 % (0.0-2.0); Eosinophils # (auto) 0.1 10 ^3/uL (0-0.8); Eosinophils % (auto) 2.5 % (0.0-7.0); Hematocrit 28.4 % (36.0-46.0); Hemoglobin 9.4 g/dL (12.2-16.2); Lymphocytes # (auto) 1.8 10 ^3/uL (0.4-5.4); Lymphocytes % (auto) 34.9 % (10.0-50.0); Mean Corpuscular Hemoglobin 31.7 pg (28.0-32.0); Monocytes # (auto) 0.4 10 ^3/uL (0-1.3); Monocytes % (auto) 6.8 % (0.0-12.0); Neutrophils # (auto) 2.9 10 ^3/uL (1.6-8.6); Nucleated Red Blood Cells % 0.1 %; Platelet Count (auto) 132 10^3/uL (140-450); Red Blood Cells 2.96 10^6/uL (4.0-5.20); Red Cell Distribution Width 14.6 % (11.8-14.3); White Blood Cell 5.3 10^3/uL (4.4-10.8)
[2024-07-10 07:33] LABS: Alanine Aminotransferase 18 U/L (7-40); Alkaline Phosphatase 72 U/L (46-116); Anion Gap 8 (5-15); BUN/Creatinine Ratio 20.9 (10.0-20.0); Blood Urea Nitrogen 14 mg/dL (9-23); Calcium 7.7 mg/dL (8.7-10.4); Carbon Dioxide 23 mmol/L (20-31); Chloride 110 mmol/L (98-107); Glucose 87 mg/dL (74-106); Magnesium 1.8 mg/dL (1.6-2.6); Potassium 3.5 mmol/L (3.5-5.1); Sodium 141 mmol/L (136-145)
[2024-07-10 07:34] LABS: Aspartate Aminotransferase 25 U/L (13-40)
[2024-07-10 07:35] LABS: Bilirubin, Total 0.9 mg/dL (0.2-1.0); Total Protein 5.6 g/dL (5.7-8.2)
[2024-07-10] MEDS ORDERED: ATOR20TA50 PO (11:38)
[2024-07-10] MEDS ORDERED: NUTR-1275 PO (11:38)
[2024-07-10] MEDS ORDERED: DOXY100C79 PO (11:38)
[2024-07-10] MEDS ORDERED: AUG875T PO (11:38)
== END 2024-07-10 19:10 | disposition hospice, home (50) | DRG 720 ==
LOC: EDBD 13:35 → ER 13:35 → OVERFLOW 21:54 → WEST WING 06-29 14:42 → TELE-WESTW 06-30 00:21 → WEST WING 07-04 21:49
PROVIDERS: ADMIT Nurse Practitioner; ATTEND Student in an Organized Health Care Education/Training Program
PROC: 05H933Z Insertion of Infusion Device into Right Brachial Vein, Percutaneous Approach (ICD-10-PCS; principal; 2024-07-01)
PROC: B54MZZA Ultrasonography of Right Upper Extremity Veins, Guidance (ICD-10-PCS; 2024-07-01)
DX: A41.9 Sepsis, unspecified organism (principal); N17.0 Acute kidney failure with tubular necrosis; R65.21 Severe sepsis with septic shock; G93.41 Metabolic encephalopathy; I67.1 Cerebral aneurysm, nonruptured; E46 Unspecified protein-calorie malnutrition; R64 Cachexia; E83.51 Hypocalcemia; D69.6 Thrombocytopenia, unspecified; E87.0 Hyperosmolality and hypernatremia; I21.A1 Myocardial infarction type 2; E87.20 Acidosis, unspecified; R62.7 Adult failure to thrive; E03.9 Hypothyroidism, unspecified; E87.6 Hypokalemia; F02.80 Dementia in other diseases classified elsewhere, unspecified severity, without behavioral disturbance, psychotic disturbance, mood disturbance, and anxiety; E78.5 Hyperlipidemia, unspecified; E87.8 Other disorders of electrolyte and fluid balance, not elsewhere classified; Z66 Do not resuscitate; M81.0 Age-related osteoporosis without current pathological fracture; E05.90 Thyrotoxicosis, unspecified without thyrotoxic crisis or storm; R13.10 Dysphagia, unspecified; N30.90 Cystitis, unspecified without hematuria; I50.32 Chronic diastolic (congestive) heart failure; I11.0 Hypertensive heart disease with heart failure; Z16.12 Extended spectrum beta lactamase (ESBL) resistance; Z88.8 Allergy status to other drugs, medicaments and biological substances; Z68.1 Body mass index [BMI] 19.9 or less, adult
CPT/HCPCS: 36415; 36600; 70450; 71045; 73060; 76775; 80048; 80053; 80202; 81001; 82306; 82570; 82607; 82805; 82962; 83605; 83690; 83735; 83970; 84100; 84156; 84166; 84295; 84300; 84443; 84478; 84484; 85007; 85025; 85027; 87040; 87081; 87086; 87088; 87186; 92507; 92610; 93005; 93306; 97110; 97116; 97163; 97530; G0378; J2185; J2405; J3480; J7060; P9047